=== PATIENT | female | born 1955 | race Caucasian/White ===

== ENCOUNTER 2025-03-28 18:26 | Emergency (ER) | payer BC, SELFPAY ==
[2025-03-28] VITALS (8 sets, daily range): BP systolic 132–160; BP diastolic 54–70; PULSE 69–70
[2025-03-28 19:10] LABS: Hematocrit 39.1 % (37.0-47.0); Hemoglobin 13.4 g/dL (12.0-16.0); Mean Corp Hgb Conc. 34.3 g/dL (33.0-37.0); Mean Corpuscular Volume 86.1 fL (81.0-99.0); Nucleated Red Blood Cells % 0 %; Platelet Count 316 10^3/uL (130-400); Red Cell Dist. Width 13.3 % (11.5-14.5)
[2025-03-28 19:54] LABS: Troponin I 0.042 ng/ml
[2025-03-28 19:59] LABS: ALT (SGPT) 42 U/L (0-35); AST (SGOT) 26 U/L (14-36); Albumin 4.9 g/dl (3.5-5.0); Alkaline Phosphatase 112 U/L (38-126); Blood Urea Nitrogen 21 mg/dl (7-17); Calcium 10.1 mg/dl (8.4-10.2); Carbon Dioxide 30 mmol/L (22-30); Chloride 101 mmol/L (98-107); Glucose 135 mg/dl (70-99); Potassium 4.3 mmol/L (3.5-5.1); Sodium 139 mmol/L (135-145); Total Protein 8.1 g/dl (6.3-8.2); eGFR > 60.00
--- NOTE | 2025-03-28 21:45 | ED.GENMED ---
History of Present Illness
General
Chief Complaint: Breathing Problem
Source: patient and spouse
Time Seen by Provider: 03/28/25 21:21
History of Present Illness
History of Present Illness:
69-year-old female who had an ablation at [facility] approximately 6 days ago states that she developed an allergic reaction to the 60 tabs that were placed on her chest. She noted redness and a square pattern on her chest where each lead was placed
associated with mild shortness of breath. She spoke to her primary care doctor and was started on prednisone on Thursday. She is starting to taper it. She notes that the rash has markedly improved as is her dyspnea, but she was concerned today
because she still has some dyspnea associated with intermittent positional lightheadedness. She denies syncope or fall. She denies throat tightness, tongue swelling, trouble swallowing, change in voice, fever, chills, cough, sore throat,
rhinorrhea, orthopnea, PND, new leg swelling. The shortness of breath that she is describing is mild at baseline but she does note it when she walks around. When asked about chest pain she says 'just a little bit' that 'kind of comes and goes',
and is better with belching. She has not experienced any of that today.
Past History
Past History
ED Past Medical History: Other (SVT/A. tach, hypertension, hypercholesterolemia, breast cancer)
ED Past Surgical History: Cardiac (Ablation) and Orthopedic
Social History
Tobacco: Non-smoker
Alcohol: None
Drug: None
Personal:
Living: with family
Phy Exam
Physical Exam
Physical Exam:
GENERAL: Alert , in no apparent distress
EYE: pupils equal and reactive
NECK: Supple, no significant adenopathy.
ENT: o/p clr, mmm.
CARDIAC: Regular rate and rhythm .
LUNGS: Clear breath sounds bilaterally, no acute respiratory distress, no wheezes/rales/rhonchi
ABDOMEN: Soft, without focal tenderness, no r/g, no cvat
NEUROLOGICAL: Alert and oriented, no focal neuro deficits
SKIN: Warm and dry, skin intact.
MUSCULOSKELETAL: No edema, well perfused.
PSYCH: Normal and appropriate interaction.
Scores
Heart Failure Risk
Heart Failure Risk Score: Not Applicable
Course
Orders/Labs/Results
Orders:
Orders
03/28/25 18:27
Electrocardiogram (*1) Urgent
Reason for Study: Shortness of Breath
EKG- Treatment ONCE
03/28/25 19:04
Complete Blood Count/With Diff Urgent
Comprehensive Metabolic Panel Urgent
Troponin I Urgent
03/28/25 21:45
CR Chest - 2 Views Urgent
Comment:
Reason For Exam: SOB
03/28/25 21:54
NT-proBNP Urgent
Troponin I Urgent
03/28/25 22:00
D-Dimer Urgent
03/29/25 00:34
Doxycycline [Vibramycin] 100 mg PO NOW STA
Abnormal Lab Results
03/28/25 03/28/25
19:04 21:54
Absolute Neuts (auto) 7.5 H 10^3/uL
(1.4-6.5)
Absolute Lymphs (auto) 1.1 L 10^3/uL
(1.2-3.4)
Neutrophils % 82.1 H %
(42.2-75.2)
Lymphocytes % 12.4 L %
(20.5-51.1)
BUN 21 H mg/dl
(7-17)
Glucose 135 H mg/dl
(70-99)
ALT 42 H U/L
(0-35)
Troponin I 0.042 H* ng/ml 0.045 H* ng/ml
03/28/25 19:04
03/28/25 19:04
Vital Signs
Initial and Last Documented VS:
Initial Vital Signs
Temp Pulse Resp BP Pulse Ox
98.5 F 70 18 160/70 96
03/28/25 18:33 03/28/25 18:33 03/28/25 18:33 03/28/25 18:33 03/28/25 18:33
Last Documented Vital Signs
Temp Pulse Resp BP Pulse Ox
98.5 F 62 16 133/61 96
03/28/25 18:33 03/29/25 00:00 03/29/25 00:00 03/29/25 00:00 03/29/25 00:00
*Pulse Oximetry
SaO2: 95
Oxygen Mode of Delivery: Room air
Patient hypoxic: no
*Critical Care Note
Total Time (30-74mins, 75-104mins- exclusive of procedures): Not Applicable
Update Note
Update Note:
Patient presents to the Emergency Department with ___dyspnea, lightheadedness
Number and Complexity of Problems Addressed at the Encounter
� Chronic conditions affecting care:
� Acute Exacerbation and/or Progression of Chronic Illness:
� Differential Diagnosis includes:, Volume depletion, orthostasis, electrolyte disorder, PE, heart failure, pneumonia, etc. etc.
Amount and/or Complexity of Data to be Reviewed and Analyzed
� I performed an independent evaluation of and my interpretation is:
EKG: Read by me, normal sinus rhythm, normal rate, no acute ischemia
CT:
Xrays:
Laboratory Studies: Generally unremarkable, initial troponin elevation I suspect related to recent procedure
Other:
� Review of other/old records reveals:
� Clinical information was obtained by an independent historian:
� Prescriptions/Medications Considered but not given:
� Further testing considered but not performed:
Risk of Complications and/or Morbidity or Mortality of Patient Management
� Social determinants of health affecting care:
� Discussion with other providers (PCP, Hospitalists, Consultants, etc):
� Escalation of care including admission/observation vs risk of discharge considered:walking pox here, no hypoxia/desat noted. Pt apperas comfortable withotu resp distress. Pt resting comfortably. Pox 95%, hr wnl. ecg
unremkarable. CXR withou specific infiltrate or pulmon edema. Doubt hf, ischemia, infx, etc. Pt does have occas cough, may be developing bronchitis/early pna. She will contact her pcp in AM to discuss prolonging current prednisone taper. No
wheezing to suggest neb/mdi would be helpful. Not septic. Awaiting D dimer, if wnl, d/c with close f/u.
uPDATE D Dimer wnl. Formal cxr with 'Low lung volumes with some predominantly linear bibasilar opacities most likely representing subsegmental atelectasis. Pneumonia cannot be excluded, particularly in the left lung base.' weighing r/b, in
contexts of sxs, Pt will be placed on doxycyline which she has tolerated in past, with rec for close f/u.
ED Attending Note
-
Portions of this chart may have been created with voice recognition software.� Occasional wrong word or��sound alike� substitutions may have occurred due to the inherent limitations of voice recognition software.
Discharge Plan
Departure
Patient Disposition: Home (Routine Discharge)
Date of Disposition: 03/28/25
Time of Disposition: 23:27
Patient with high blood pressure during this ER visit?: Yes
Condition: Good
Discharge Problem:
Dyspnea, Pneumonia
Instructions: Shortness of Breath (Dyspnea) (DC), Community-acquired pneumonia in adults, BLOOD PRESSURE
Prescriptions:
New
doxycycline hyclate 100 mg capsule
100 mg PO BID Qty: 14 0RF
Referrals:
Sanjuana Randall DO [Family Provider, Family Practice] - Follow up in 2-3 days
Activity Restrictions/Additional Instructions:
IF YOU DEVELOP INCREASING/PERSISTENT TROUBLE BREATHING, ANY CHEST PAIN, VOMITING, SWELLING, OR OTHER WORRISOME SIGNS, GO TO THE ER IMMEDIATELY!
Interventions
Interventions:
*Risk Screen - Suicide Last Done: 03/28/25 18:28
*General Assessment Last Done: 03/28/25 18:33
*Neglect/Abuse Screening Last Done: 03/28/25 21:29
*ED COVID-19 Vaccine History Last Done: 03/28/25 18:33
*ED Influenza Vaccine History Last Done: 03/28/25 18:33
[facility] Fall Risk Assessment Tool Last Done: 03/28/25 21:28
*Nursing Disposition Last Done: 03/29/25 00:39
ED- Cardiac Assessment Last Done: 03/28/25 21:29
ED- Pulmonary Assessment Last Done: 03/28/25 21:29
Discharge Date and Time
Discharge Date/Time: 03/29/25 00:39
Print Language: DJIBOUTIAN
[2025-03-28 22:28] LABS: Troponin I 0.045 ng/ml
[2025-03-28 23:11] LABS: D-Dimer < 0.27 ug/mlFEU (0.00-0.50)
[2025-03-29] VITALS: BP 133/61
[2025-03-29] MEDS: VIBRAMYCIN 100 MG PO (00:35)
== END 2025-03-29 00:39 | disposition home or self-care (01) ==
LOC: EMR 18:26
PROVIDERS: Emergency Medicine; EMERGENCY PHYSICIAN Emergency Medicine; FAMILY PHYSICIAN Family Medicine
DX: J18.9 Pneumonia, unspecified organism (principal); I10 Essential (primary) hypertension; E78.00 Pure hypercholesterolemia, unspecified; Z85.3 Personal history of malignant neoplasm of breast; E78.5 Hyperlipidemia, unspecified; Z86.79 Personal history of other diseases of the circulatory system; Z98.890 Other specified postprocedural states
CPT/HCPCS: 99285; 71046; 80053; 83880; 84484; 85025; 85379; 93005

== ENCOUNTER 2025-04-05 17:17 | Emergency (ER) | payer BC, SELFPAY ==
[2025-04-05 17:26] VITALS: BP 146/69
[2025-04-05 17:48] LABS: Hematocrit 39.6 % (37.0-47.0); Hemoglobin 13.4 g/dL (12.0-16.0); Mean Corp Hgb Conc. 33.8 g/dL (33.0-37.0); Mean Corpuscular Volume 87.8 fL (81.0-99.0); Nucleated Red Blood Cells % 0 %; Platelet Count 313 10^3/uL (130-400); Red Cell Dist. Width 13.4 % (11.5-14.5)
[2025-04-05 18:00] LABS: ALT (SGPT) 28 U/L (0-35); AST (SGOT) 23 U/L (14-36); Albumin 4.5 g/dl (3.5-5.0); Alkaline Phosphatase 119 U/L (38-126); Blood Urea Nitrogen 24 mg/dl (7-17); Calcium 9.8 mg/dl (8.4-10.2); Carbon Dioxide 27 mmol/L (22-30); Chloride 103 mmol/L (98-107); Glucose 111 mg/dl (70-99); Potassium 3.6 mmol/L (3.5-5.1); Sodium 137 mmol/L (135-145); Total Protein 7.5 g/dl (6.3-8.2); eGFR > 60.00
[2025-04-05 18:07] LABS: Troponin I < 0.012 ng/ml
--- NOTE | 2025-04-05 20:05 | ED.GENMED ---
History of Present Illness
<Ellie Garnett MD, Resident - Last Filed: 04/05/25 21:57>
General
Chief Complaint: Breathing Problem
Source: patient
Exam Limitations: none
Time Seen by Provider: 04/05/25 19:48
Nursing documentation reviewed up to this point in time: agreed with
History of Present Illness
History of Present Illness:
69-year-old F with a history of SVT (s/p recent ablation), HTN, & HLD who presents with ongoing dyspnea on exertion and new left arm discomfort following ablation.
Patient states that she had an ablation performed at [facility] for SVT about 2 week at which point she was founds ago. Since then she has been experiencing tachypnea and dyspnea on exertion. She was seen in the ED for this on 03/28, to have
nonelevated troponin, normal EKG, CXR with low lung volumes with some predominantly linear bibasilar opacities most likely representing atelectasis; pneumonia cannot be excluded particularly in the lung base. Patient was started on doxycycline and
prednisone taper was prolonged. Patient was discharged. Since then, patient has been on prednisone, which he feels has not helped significantly. Denies any cough except when she is feeling particularly dyspneic. States that dyspnea has slightly
worsened with just simply walking around the kitchen at home. She also feels that it is worse when she bends all the way forward. Denies any orthopnea, denies any ADRIAN. Denies any fever/chills or nausea/vomiting. States that recently she has
started to feel discomfort and pain in the posterior left upper extremity/axilla region. Denies any swelling of the left upper extremity or any erythema of the left upper extremity. Today patient saw her family medicine doctor who prescribed her
albuterol (which she has not yet taken), and advised her to present to the ED to obtain a CT chest and cardiac echo. Also concerned about LUE DVT. Pt was started on xarelto 2 weeks ago following her ablation.
Past History
<Ellie Garnett MD, Resident - Last Filed: 04/05/25 21:57>
Past History
ED Past Medical History: Other (SVT/A. tach, hypertension, hypercholesterolemia, breast cancer)
ED Past Surgical History: Cardiac (Ablation) and Orthopedic
Social History
Tobacco: Non-smoker
Alcohol: None
Drug: None
Personal:
Living: with family
Review of Systems
<Ellie Garnett MD, Resident - Last Filed: 04/05/25 21:57>
Review of Systems
All Other Systems: ROS reviewed and negative except as documented in HPI and ROS
Constitutional: Reports no symptoms
EENT: Reports no symptoms
Respiratory: Reports trouble breathing
Cardiac: Reports palpitations
ABD/GI: Reports no symptoms
: Reports no symptoms
Musculoskeletal: Reports other (L axilla/LUE pain )
Skin: Reports no symptoms
Neurological: Reports no symptoms
Psychiatric: Reports no symptoms
Phy Exam
<Ellie Garnett MD, Resident - Last Filed: 04/05/25 21:57>
General Physical Exam
General Presentation: well appearing and no apparent distress
General age: appears stated age
General Skin: warm and dry
General Habitus: normal
General Mental: alert
Eye Exam
Eye Exam: EOMI
Cardiovascular Exam
Cardiovascular Exam: regular rate/rhythm and no edema
Heart Sounds: normal
Pulmonary Exam
Pulmonary Exam: lungs clear, no respiratory distress and other (slight tachypnea with talking )
Gastrointestinal Exam
Gastrointestinal Exam: non distended
Neurological Exam
Neurological Exam: alert and no motor deficits
Musculoskeletal Exam
Musculoskeletal Exam: no edema
Skin Exam
Skin Exam: normal color and warm/dry
Psychiatric Exam
Psychiatric Exam: normal mood/affect
Scores
<Ellie Garnett MD, Resident - Last Filed: 04/05/25 21:57>
Heart Failure Risk
Heart Failure Risk Score: Not Applicable
Course
<Ellie Garnett MD, Resident - Last Filed: 04/05/25 21:57>
Orders/Labs/Results
Orders:
Orders
04/05/25 17:27
Electrocardiogram (*1) Urgent
Reason for Study: Shortness of Breath
EKG- Treatment ONCE
04/05/25 17:33
Complete Blood Count/With Diff Urgent
Comprehensive Metabolic Panel Urgent
Troponin I Urgent
04/05/25 20:14
US Arms, Left [US Periph Venous UPPER Ext LT] Urgent
Comment:
Reason For Exam: LUE pain
04/05/25 20:16
CT Chest PE Study Urgent
Comment:
Reason For Exam: dyspnea
Abnormal Lab Results
04/05/25
17:33
WBC 12.5 H 10^3/uL
(4.8-10.8)
Abs Immat Gran (auto) 0.1 H 10^3/uL
(0-0.05)
Absolute Neuts (auto) 9.1 H 10^3/uL
(1.4-6.5)
Absolute Monos (auto) 1.0 H 10^3/uL
(0.1-0.6)
Lymphocytes % 16.7 L %
(20.5-51.1)
BUN 24 H mg/dl
(7-17)
Glucose 111 H mg/dl
(70-99)
04/05/25 17:33
04/05/25 17:33
Vital Signs
Initial and Last Documented VS:
Initial Vital Signs
Temp Pulse Resp BP Pulse Ox
98.5 F 72 16 146/69 95
04/05/25 17:26 04/05/25 17:26 04/05/25 17:26 04/05/25 17:26 04/05/25 17:26
Last Documented Vital Signs
Temp Pulse Resp BP Pulse Ox
98.5 F 68 16 125/67 96
04/05/25 17:26 04/05/25 20:45 04/05/25 20:45 04/05/25 20:38 04/05/25 20:45
<Hector Anderson, DO - Last Filed: 04/05/25 20:33>
Orders/Labs/Results
Orders:
Orders
04/05/25 17:27
Electrocardiogram (*1) Urgent
Reason for Study: Shortness of Breath
EKG- Treatment ONCE
04/05/25 17:33
Complete Blood Count/With Diff Urgent
Comprehensive Metabolic Panel Urgent
Troponin I Urgent
04/05/25 20:14
US Arms, Left [US Periph Venous UPPER Ext LT] Urgent
Comment:
Reason For Exam: LUE pain
04/05/25 20:16
CT Chest PE Study Urgent
Comment:
Reason For Exam: dyspnea
Abnormal Lab Results
04/05/25
17:33
WBC 12.5 H 10^3/uL
(4.8-10.8)
Abs Immat Gran (auto) 0.1 H 10^3/uL
(0-0.05)
Absolute Neuts (auto) 9.1 H 10^3/uL
(1.4-6.5)
Absolute Monos (auto) 1.0 H 10^3/uL
(0.1-0.6)
Lymphocytes % 16.7 L %
(20.5-51.1)
BUN 24 H mg/dl
(7-17)
Glucose 111 H mg/dl
(70-99)
04/05/25 17:33
04/05/25 17:33
Vital Signs
Initial and Last Documented VS:
Initial Vital Signs
Temp Pulse Resp BP Pulse Ox
98.5 F 72 16 146/69 95
04/05/25 17:26 04/05/25 17:26 04/05/25 17:26 04/05/25 17:26 04/05/25 17:26
Last Documented Vital Signs
Temp Pulse Resp BP Pulse Ox
98.5 F 68 16 125/67 96
04/05/25 17:26 04/05/25 20:45 04/05/25 20:45 04/05/25 20:38 04/05/25 20:45
<Ellie Garnett MD, Resident - Last Filed: 04/05/25 21:57>
MDM/Problems Addressed
Differential Diagnosis Includes:
Pericarditis
PE
ACS
Pneumonia
Phrenic nerve injury
Asthma
LUE DVT
L axillary nerve irritation/compression
MDM/Problems Addressed:
- CBC, CMP
- EKG, troponin
- CT chest with contrast
- LUE ultrasound
- Will defer cardiac echo at this point, pending results of above testing
<Ellie Garnett MD, Resident - Last Filed: 04/05/25 21:57>
*Pulse Oximetry
SaO2: 95
Oxygen Mode of Delivery: Room air
Patient hypoxic: no
*Critical Care Note
Total Time (30-74mins, 75-104mins- exclusive of procedures): Not Applicable
<Ellie Garnett MD, Resident - Last Filed: 04/05/25 21:57>
Update Note
Update Note:
EKG unremarkable, troponin not elevated
Leukocytosis 12.6 attributable to current prednisone use
8:25pm
Touched base with lead generation marketing manager crm administrator re: utility of echo prior to CT results
Will plan for admission if CT shows moderate to large effusion and plan for echo tomorrow
If CT does not suggest sizable effusion, patient can be scheduled for outpatient echo tomorrow with [facility] cardiology
9:45pm
LUE US without evidence for DVT
CT without evidence of PE. Linear and band shaped opacities within both lower lungs, similar to previous chest radiograph, compatible with linear/discoid atelectasis and/or scarring. No evidence of consolidation to suggest pneumonia. Enlarged heart
with no findings to suggest pulmonary edema/active vascular congestion.
Will plan for discharge with outpatient echo tomorrow with [facility].
ED Attending Note
<Ellie Garnett MD, Resident - Last Filed: 04/05/25 21:57>
-
Portions of this chart may have been created with voice recognition software.� Occasional wrong word or��sound alike� substitutions may have occurred due to the inherent limitations of voice recognition software.
<Hector Anderson DO - Last Filed: 04/05/25 20:33>
ED Attending Note
Patient seen and examined by attending physician: Yes
I performed a history and physical exam of patient and discussed management with resident, I reviewed resident's note and agree with documented findings and plan of care.: Yes
ED Attending Note:
I have seen and evaluated the patient with a [id number] encounter. I have spoken to the resident and involved in the medical history, the physical exam, medical decision making.
Evaluation and management service: agree unless noted differently below.
Results interpretation: agree unless noted differently below.
Focused HPI: 69-year-old female presenting with persistent shortness of breath. Patient recent ablation. Since then, she was evaluated the emergency department with shortness of breath and diagnosed with pneumonia. Given ongoing symptoms, she was
sent back to the emergency
Physical exam: Sitting bed comfortably. Heart regular rate and rhythm. Lungs clear
Medical Decision Making: Patient stating that her PCP wants a CT PE and an echo. Will obtain CT PE looking for evidence of PE versus pneumonia. If there is no significant pericardial effusion, patient will not require emergent echo. Case
discussed with cardiology who agrees.
Discharge Plan
Departure
Patient Disposition: Home (Routine Discharge)
Date of Disposition: 04/05/25
Time of Disposition: 21:50
Patient with high blood pressure during this ER visit?: No
Condition: Good
Covid-19: Not Applicable
Discharge Problem:
Dyspnea
Prescriptions:
No Action
doxycycline hyclate 100 mg capsule
100 mg PO BID Qty: 14 0RF
Referrals:
Sanjuana Randall DO [Family Provider, Family Practice]
Sharon Carney MD [Active, Cardiology] - Tomorrow
Referral Note: for outpatient echo
Activity Restrictions/Additional Instructions:
You were seen in the emergency department today for ongoing shortness of breath following your cardiac ablation procedure and pain in your left arm a CT scan of your. An ultrasound of your left arm did not demonstrate any DVT (blood clot). Chest
did not show any fluid around your heart (pericarditis); it only showed atelectasis, which is consistent with your x-ray from 03/28 and just represents areas of compressed lung, which can be seen postop.
We have provided follow-up information for [facility] (Dr. Sharon Carney) - their office will call you tomorrow to schedule an outpatient echo. We consulted with the cardiology team, who did not think that you needed an
emergent echo tonight.
Please return to the ED if you have worsening chest pain, significant worsening of your shortness of breath, episodes of loss of consciousness, or significant palpitations.
Interventions
Interventions:
*Risk Screen - Suicide Last Done: 04/05/25 17:28
*General Assessment Last Done: 04/05/25 20:30
*Neglect/Abuse Screening Last Done: 04/05/25 17:28
*ED COVID-19 Vaccine History Last Done: 04/05/25 20:30
*ED Influenza Vaccine History Last Done: 04/05/25 20:30
[facility] Risk Assessment Tool Last Done: 04/05/25 20:30
ED- Cardiac Assessment Last Done: 04/05/25 20:30
ED- Pulmonary Assessment Last Done: 04/05/25 20:30
Discharge Date and Time
Print Language: NEPALI
[2025-04-05 20:30] VITALS: BMI 39.0
[2025-04-05 20:38] VITALS: BP 125/67
[2025-04-05 21:53] VITALS: BP 130/59
[2025-04-05 22:00] VITALS: BP 148/64
== END 2025-04-05 22:40 | disposition home or self-care (01) ==
LOC: EMR 17:17
PROVIDERS: Emergency Medicine; EMERGENCY PHYSICIAN Student in an Organized Health Care Education/Training Program; FAMILY PHYSICIAN Family Medicine
DX: R06.00 Dyspnea, unspecified (principal); I47.10 Supraventricular tachycardia, unspecified; I10 Essential (primary) hypertension; E78.00 Pure hypercholesterolemia, unspecified; Z79.01 Long term (current) use of anticoagulants; Z85.3 Personal history of malignant neoplasm of breast
CPT/HCPCS: 99284; 71275; 80053; 84484; 85025; 93005; 93971; Q9967

== ENCOUNTER → 2025-04-06 10:15 | Outpatient (REF) | payer BC, SELFPAY | LOC: RCS 10:15 | PROVIDERS: ATTENDING PHYSICIAN Physician Assistant Medical; FAMILY PHYSICIAN Family Medicine; REFERRING PHYSICIAN Internal Medicine Cardiovascular Disease | DX: I47.10 Supraventricular tachycardia, unspecified (principal); Z98.890 Other specified postprocedural states; Z86.79 Personal history of other diseases of the circulatory system; R06.02 Shortness of breath | CPT/HCPCS: 93306 ==